=== PATIENT | male | born 1995 | race Caucasian/White ===

== ENCOUNTER 2016-11-25 23:19 | Emergency (ER) | payer OTHER ==
[2016-11-25 23:59] VITALS: BP 126/74
--- NOTE | 2016-11-26 00:05 | EDM.PDOC ---
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 Tetanus is UTD. Here for evaluation. 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 (see below) (None) ED ROS GENERAL - Review of Systems Review Of Systems: See Below Constitutional: Reports: No Symptoms Skin: Reports: Wound (R hand) Neurological: Reports: No Symptoms ED EXAM, SKIN/RASH Exam: See Below Exam Limited By: No Limitations General Appearance: Alert, WD/WN, No Apparent Distress Extremities: Other (wounds fingers of the R thumb and long finger tips) Neurological: Alert, Oriented, CN II-XII Intact, Normal Cognition, No Motor/ Sensory Deficits Psychiatric: Normal Affect, Normal Mood Skin: Warm, Normal Color, No Rash, Wound/Incision (superficial laceration of distal thumb with good wound edge approximation. Small avulsion of distal long finger tip, martínez surface. ) Location, Skin: Upper Extremity, Right Lymphatic: No Adenopathy Course - Vital Signs Text/Narrative:: Wounds cleaned and dressed. Last Recorded V/S: Last Vital Signs Temp 36.8 C 11/25/16 23:30 Pulse 54 L 11/25/16 23:30 Resp 16 11/25/16 23:30 BP 126/74 11/25/16 23:30 Pulse Ox 100 11/25/16 23:30 Departure - Departure Time of Disposition: 00:10 Disposition: Home, Self-Care 01 Condition: good Clinical Impression: Superficial injury of right middle finger Qualifiers: Encounter type: initial encounter Qualified Code(s): S60.942A - Unspecified superficial injury of right middle finger, initial encounter - Discharge Information Referrals: PCP,None [Primary Care Provider] - Forms: ED Department Discharge Additional Instructions: Clean wound twice a day with soap and water. Dry. Apply Antibiotic ointment and a new dressing. Take acetaminophen as needed for pain relief. Recheck for signs of infection. Try to keep wounds clean for a couple of days if possible.
== END 2016-11-26 00:10 | disposition home or self-care (01) ==
LOC: FB.ED 23:19
DX: S60.942A Unspecified superficial injury of right middle finger, initial encounter (principal); X58.XXXA Exposure to other specified factors, initial encounter; Y92.511 Restaurant or cafe as the place of occurrence of the external cause
CPT/HCPCS: 99282